=== PATIENT | male | born 1990 | race Caucasian/White ===

== ENCOUNTER 2019-11-20 06:04 | Day surgery (SDC) | payer OTHER, SELFPAY ==
[2019-11-19 08:16] VITALS: BMI 33.5
[2019-11-20] VITALS (9 sets, daily range): BP systolic 103–136; BP diastolic 40–80; PULSE 79–90; RESP 16–20; TEMP 36.1–36.3; O2SAT 95–98
--- NOTE | 2019-11-20 07:04 | ANES.PREANES ---
Pre-Anesthetic Assessment Pre-Anesthetic Assessment: Height/Weight: Height 1.98 m Weight 131.542 kg Temp Pulse Resp BP Pulse Ox 97 F L 80 18 136/80 96 11/20/19 06:23 11/20/19 06:23 11/20/19 06:23 11/20/19 06:23 11/20/19 06:23 Proposed Procedure: Operation Date: 11/20/19 07:40 Proposed Procedures p Sphincterotomy/Anal(Not Applicable) - Frandy Ahuja MD Last intake: Intake Last Liquid Date 11/19/19 Last Liquid Time 17:00 Last Solid Date 11/19/19 Last Solid Time 17:00 Social: Social History: No alcohol and No tobacco Exam: Pre-Anes Outpt Exam: alert, oriented x 3, clear to auscultation bilaterally and regular rate & rhythm Airway: Submandibular: WNL Cervical ROM: WNL MP: 1 Dentition: Other (teeth OK) Pulmonary: Pulmonary: None reported CV/HEM: CV/HEM: None reported : : None reported Hepatic: Hepatic: None reported GI: GI: None reported Metabolic: Metabolic: None reported Musc/skel: Musc/skel: None reported Neuropsych: Neuropsych: Anxiety and Depression Anesthetic Plan: ASA status: II Anesthesia: General Risk of > 500 ml blood loss (7ml/kg in children): No PFSH Anesthesia PFSH: Family History (Updated 11/19/19 @ 08:16 by Caitie Ruelas) Grandfather Heart disease Social History (Updated 11/19/19 @ 08:16 by Caitie Ruelas) Smoking and tobacco status: never smoked Alcohol intake: current Alcohol intake frequency: few times a month Substance/Drug Use: never Data Anesthesia Cardiac Studies: No Data to Display
[2019-11-20] MEDS: sodium chloride 0.9% 1,000 ML 30 ML IV (07:28)
--- NOTE | 2019-11-20 08:00 | P.OP_ITS ---
Operative Report Post-Operative Note: Date of procedure: 11/20/19 Preop Diagnosis: Anal fissure Post-op diagnosis: same Procedure Done: Exam under anesthesia with anal dilation. Pathology: none sent Surgeon: Frandy Ahuja Anesthesia: general (General anesthesia by means of a laryngeal mask airway.) Estimated blood loss (mL): 3 Complications: None. Findings: The patient was brought to the operating room and was placed in a supine position on the operating room table. General anesthesia was induced by means of a laryngeal mask airway. The patient was then moved to a left lateral decubitus position on the table. The perianal region was prepped and draped in a sterile fashion. An anorectal exam was then carried out using a Pritchett rectal retractor. The patient had an obvious posterior anal fissure present, but there was not well- defined internal anal sphincter spasm noted. For that reason, a sphincterotomy was decided against. The anal sphincters were gently dilated to approximately 3 fingerbreadths. Hemostasis was good. Some 0.5% bupivacaine with 1-200,000 parts epinephrine was instilled into the area for postoperative anesthesia. A Vaseline coated piece of gauze and some fluff dressings were used as an anal pack. An overlying sterile fluff dressing was then placed. The patient was taken to the Recovery Area in stable condition postoperatively. Condition: stable Disposition: PACU Coding Level of Care Code Acute Sourcing Assistant for Todd Manuel
--- NOTE | 2019-11-20 08:43 | SUR.PHASEI ---
0757 PATIENT TO PACU VIA GURNEY AT THIS TIME FROM OR. RR EVEN AND UNLABORED. PWD. PLACED ON SIMPLE MASK.
== END 2019-11-20 09:27 | disposition home or self-care (01) ==
PROVIDERS: Family Provider General Practice; PCP Family Medicine; Visit Provider Surgery
PROC: 0DJDXZZ Inspection of Lower Intestinal Tract, External Approach (ICD-10-PCS; CPT 45905; principal; 2019-11-20 07:30)
DX: K60.2 Anal fissure, unspecified (principal); Z81.1 Family history of alcohol abuse and dependence; Z82.49 Family history of ischemic heart disease and other diseases of the circulatory system
CPT/HCPCS: 45905; 99221; J0690; J2001; J2250; J2704; J3010; J3490; J7030; S0030

== ENCOUNTER → 2020-10-07 15:59 | Outpatient (BNVA) | payer OTHER, SELFPAY | PROVIDERS: Family Provider General Practice; PCP Family Medicine; Visit Provider Nurse Practitioner | DX: R50.9 Fever, unspecified (principal); Z20.828 Contact with and (suspected) exposure to other viral communicable diseases; Z11.59 Encounter for screening for other viral diseases; B34.9 Viral infection, unspecified; Z68.34 Body mass index [BMI] 34.0-34.9, adult; Z71.89 Other specified counseling | CPT/HCPCS: 87400; 87635 ==

== ENCOUNTER → 2021-11-22 12:49 | Outpatient (BNVA) | payer OTHER, SELFPAY | PROVIDERS: Family Provider General Practice; PCP Family Medicine; Visit Provider Nurse Practitioner Family | DX: Z20.822 Contact with and (suspected) exposure to COVID-19 (principal) | CPT/HCPCS: 87635 ==

== ENCOUNTER → 2023-11-01 08:13 | Outpatient (BNVA) | payer OTHER, SELFPAY | PROVIDERS: Family Provider General Practice; PCP Family Medicine; Visit Provider Family Medicine | DX: Z13.220 Encounter for screening for lipoid disorders (principal); Z51.81 Encounter for therapeutic drug level monitoring | CPT/HCPCS: 80053; 80061; 85025 ==

== ENCOUNTER 2024-01-23 12:53 | Outpatient (CLI) | payer OTHER, SELFPAY ==
--- NOTE | 2024-01-23 12:59 | XR_ITS ---
WS: [id number] Lumbar spine, 4 views including obliques, 01/23/2024 Clinical Data: LOW BACK PAIN AFTER FALL Comparison: None. Findings: No compression fractures or subluxation is seen. No disc space narrowing is seen. The transverse proc esses and SI joints are normal. The oblique films show no spondylolysis. There is a slight levoscoliosis. Impression: 1. Minimal levoscoliosis. 2. Negative for spondylolysis.
== END 2024-01-23 12:54 | disposition home or self-care (01) ==
LOC: RAD 12:57
PROVIDERS: Family Provider General Practice; PCP Family Medicine; Visit Provider Chiropractor
DX: M54.50 Low back pain, unspecified (principal); W19.XXXA Unspecified fall, initial encounter; M41.9 Scoliosis, unspecified
CPT/HCPCS: 72110